=== PATIENT | female | born 1955 | race Caucasian/White ===

== ENCOUNTER 2022-03-04 08:02 | Day surgery (SDC) | payer OTHER ==
[~2022-03-04 08:02] MED LIST: Lactated Ringers 1,000 ML IV SCH; Propofol 200 MG/20 ML SDV ONE; fentaNYL 100 MCG/2 ML SDV ONE
[2022-03-04] MEDS ORDERED: Propofol 200 MG/20 ML SDV ONE (10:41)
[2022-03-04] MEDS ORDERED: Lactated Ringers 1,000 ML IV SCH (10:45)
[2022-03-04 11:40] VITALS: BP 137/69; PULSE 78
== END 2022-03-04 11:41 | disposition home or self-care (01) ==
LOC: MW.SDS 08:02
PROVIDERS: ATTEND Surgery
DX: K51.90 Ulcerative colitis, unspecified, without complications (principal); K63.89 Other specified diseases of intestine; K43.2 Incisional hernia without obstruction or gangrene; G47.00 Insomnia, unspecified; E66.9 Obesity, unspecified; F32.A Depression, unspecified; H54.7 Unspecified visual loss; F41.9 Anxiety disorder, unspecified; F17.210 Nicotine dependence, cigarettes, uncomplicated; Z72.89 Other problems related to lifestyle; Z68.33 Body mass index [BMI] 33.0-33.9, adult; Z88.8 Allergy status to other drugs, medicaments and biological substances; Z79.899 Other long term (current) drug therapy; Z86.010 Personal history of colon polyps; Z87.19 Personal history of other diseases of the digestive system; Z98.890 Other specified postprocedural states
CPT/HCPCS: 45380; J2370; J2704; J3010; J7120; 00812

== ENCOUNTER 2025-04-17 18:38 | Emergency (ER) | payer OTHER ==
[2025-04-17 19:16] LABS: BASOPHILS ABSOLUTE AUTO 0.07 K/uL (0.00-0.20); BASOPHILS PERCENT AUTO 0.5 % (0.0-1.0); EOSINOPHILS ABSOLUTE AUTO 0.34 K/uL (0.00-0.45); EOSINOPHILS PERCENT AUTO 2.3 % (0.0-6.0); HEMATOCRIT 46.9 % (37.0-47.0); HEMOGLOBIN 15.4 g/dL (12.0-16.0); IMMATURE GRAN ABSOLUTE AUTO 0.05 K/uL (0.00-0.05); IMMATURE GRAN PERCENT AUTO 0.3 % (0.0-0.4); LYMPHOCYTES ABSOLUTE AUTO 2.27 K/uL (1.00-4.80); LYMPHOCYTES PERCENT AUTO 15.6 % (24.0-44.0); MEAN CORPUSCULAR HEMOGLOBIN 29.7 pg (28.0-32.0); MEAN CORPUSCULAR HGB CONC 32.8 g/dL (32.0-36.0); MEAN CORPUSCULAR VOLUME 90.4 fL (83.0-99.0); MEAN PLATELET VOLUME 9.4 fL (9.4-12.3); MONOCYTES ABSOLUTE AUTO 0.49 K/uL (0.00-0.80); MONOCYTES PERCENT AUTO 3.4 % (0.0-8.0); NEUTROPHILS ABSOLUTE AUTO 11.29 K/uL (1.80-7.70); NEUTROPHILS PERCENT AUTO 77.9 % (41.0-71.0); PLATELET COUNT,PLT 328 K/uL (150-400); RED BLOOD CELL COUNT 5.19 M/uL (4.10-5.30); WHITE BLOOD CELL COUNT,WBC 14.51 K/uL (3.9-11.3)
[2025-04-17 19:42] LABS: A/G RATIO 0.9 (0.9-1.6); ALBUMIN 3.7 g/dL (3.4-5.0); BILIRUBIN TOTAL 0.5 mg/dL (0.2-1.0); CALCIUM 9.3 mg/dL (8.5-10.1); CARBON DIOXIDE,CO2 28.2 mmol/L (21.0-32.0); CREATININE 0.9 mg/dL (0.6-1.0); EST CRCL DRUG DOSING (CG) 51.59 mL/min; POTASSIUM,K 4.5 mmol/L (3.5-5.1); PROTEIN TOTAL,TP 7.8 g/dL (6.4-8.2)
[2025-04-17 19:45] LABS: LACTIC ACID 2.5 mmol/L (0.4-2.0)
[2025-04-17 20:21] LABS: HEMOGLOBIN A1C 5.9 %
[2025-04-17] MEDS: Ondansetron 4 MG/2 ML SDV IVPUSH ONE (20:22)
[2025-04-17] MEDS: Sodium Chloride 0.9% 1,000 ML IV ONE (20:22)
[2025-04-17] MEDS: Iopamidol 755 MG/ML 500 ML Multipack Bottle IVPUSH ONE (21:32)
[2025-04-17 22:08] LABS: APPEARANCE,URINE CLEAR; BILIRUBIN,URINE NEGATIVE (NEGATIVE); COLOR,URINE YELLOW; GLUCOSE,URINE NEGATIVE (NEGATIVE); KETONES,URINE NEGATIVE (NEGATIVE); LEUKOCYTE ESTERASE,URINE NEGATIVE (NEGATIVE); NITRITE,URINE NEGATIVE (NEGATIVE); OCCULT BLOOD,URINE TRACE-INTACT (NEGATIVE); PROTEIN,URINE NEGATIVE (NEGATIVE); UROBILINOGEN,URINE 0.2 EU/dL (<2.0)
[2025-04-17 22:14] LABS: BACTERIA,URINE FEW (NEGATIVE); EPITHELIAL CELLS,URINE FEW (NONE-FEW); RBC,URINE 0-2 (0-2/HPF); WBC,URINE 0-2 (0-5/HPF)
[2025-04-17] MEDS: Piperacillin/Tazobactam 4.5 GM in Sodium Chloride 0.9% 100 ML IV ONE (22:32)
[2025-04-18] MEDS: LORazepam 2 MG/ML SDV IVPUSH ONE (02:40)
[2025-04-18 02:45] VITALS: BP 136/60; PULSE 78
== END 2025-04-18 03:32 ==
LOC: MW.ED 18:38
DX: K37 Unspecified appendicitis (principal); Z75.3 Unavailability and inaccessibility of health-care facilities; Z88.8 Allergy status to other drugs, medicaments and biological substances; Z79.899 Other long term (current) drug therapy
CPT/HCPCS: 36415; 71045; 74177; 80053; 81001; 83036; 83605; 83690; 83735; 85025; 87040; 87426; 93005; 96361; 96365; 96375; 99285; J2060; J2405; J2543; J7030; Q9967